=== PATIENT | male | born 1950 | race Caucasian/White ===

== ENCOUNTER 2021-06-27 06:02 | Inpatient (IN) ==
--- NOTE | 2021-06-09 11:44 | PAT Medication Instructions ---
Medication Instructions Date of Service June 09, 2021 Home Medications ascorbic acid (vitamin C) [Vitamin C] 500 mg PO QAM calcium carbonate-vitamin D3 [Calcium 600 + D(3)] 1 cap PO QAM colesevelam 625 mg PO PM fluoxetine 20 mg PO QAM glimepiride 2 mg PO QPM insulin NPH isoph U-100 human [Novolin N Flexpen] 45 - 50 unit SUBCUT BID Novolog FlexPen 8-15 unit SUBCUT with meals lactobacillus combination no.4 [Probiotic] 3,000 mmu cells PO QPM levothyroxine 88 mcg PO QAM lisinopril 10 mg PO QAM omeprazole 40 mg PO QAM pramipexole [Mirapex] 0.125 mg PO BID simvastatin 20 mg PO HS topiramate 25 mg PO HS STOP taking 48 hours before surgery colesevelam 625 mg PO PM DO NOT take the morning of surgery ascorbic acid (vitamin C) [Vitamin C] 500 mg PO QAM calcium carbonate-vitamin D3 [Calcium 600 + D(3)] 1 cap PO QAM lisinopril 10 mg PO QAM pramipexole [Mirapex] 0.125 mg PO BID Novolog FlexPen 8-15 unit SUBCUT with meals Take morning of surgery With a small sip of water, OTHERWISE NOTHING TO EAT OR DRINK AFTER MIDNIGHT: fluoxetine 20 mg PO QAM levothyroxine 88 mcg PO QAM omeprazole 40 mg PO QAM Take evening before surgery glimepiride 2 mg PO QPM insulin NPH isoph U-100 human [Novolin N Flexpen] 45 - 50 unit SUBCUT BID Novolog FlexPen 8-15 unit SUBCUT with meals lactobacillus combination no.4 [Probiotic] 3,000 mmu cells PO QPM pramipexole [Mirapex] 0.125 mg PO BID simvastatin 20 mg PO HS topiramate 25 mg PO HS Insulin Dependent Diabetic Patients * Test your blood sugar the morning of surgery * If Blood Sugar is GREATER THAN 150, take HALF of your regular dose of: insulin NPH isoph U-100 human [Novolin N Flexpen] (22 units) * If Blood Sugar is LESS THAN 150, DO NOT TAKE ANY: insulin NPH isoph U-100 human [Novolin N Flexpen] Other Notes If you have any questions please call us at [phone] or [phone] or [phone] or [phone]
--- NOTE | 2021-06-13 12:20 | Anesthesiology Consultation ---
Date of Service June 13, 2021 Assessment & Plan (1) Encounter for pre-operative examination: Chart Review Chart Review: Acceptable Risk for Surgery (pending PCP clearance and preop Covid testing results ) and Patient seen in Pre Admission Testing -Will attempt to get PCP office visit (pt scheduled to see the week of 06/12/21) - Check BSG AM DOS PAT appointment 06/13/2021, patient resides in [facility]. 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 Wears mask, uses good hand hygiene and socially distances. No known Covid positive contacts or Covid related symptoms. No known Covid infection in the past 90 days. Patient vaccinated for Covid. Preop Covid testing scheduled 06/23/21= will await results. Educated on importance of self quarantining, social distancing and wearing mask in public both for the patient after Covid testing done History Surgery Operation Date: 06/27/21 07:45 Proposed Procedures p C3-C5 Anterior Cervical Discectomy and Fusion Spinal Cord Monitoring - Don Clarke, Height/Weight Height: 5 ft 7 in Weight: 145.5 kg Allergies Allergy/AdvReac Type Severity Reaction Status Date / Time naproxen AdvReac Severe MAJOR Verified 06/08/21 15:36 FLIUD RETENTION metformin AdvReac Unknown Diarrhea Verified 06/08/21 16:18 semaglutide [From Ozempic] AdvReac Unknown Gastrointestinal Verified 06/08/21 16:18 Upset Medications Home Medications Medication Instructions Recorded Confirmed Last Taken ascorbic acid (vitamin C) [Vitamin 500 mg PO QAM 06/08/21 06/08/21 Unknown C] calcium carbonate-vitamin D3 1 cap PO QAM 06/08/21 06/08/21 Unknown [Calcium 600 + D(3)] colesevelam 625 mg PO PM 06/08/21 06/08/21 Unknown fluoxetine 20 mg PO QAM 06/08/21 06/08/21 Unknown glimepiride 2 mg PO QPM 06/08/21 06/08/21 Unknown insulin NPH isoph U-100 human 45 - 50 unit SUBCUT BID 06/08/21 06/08/21 Unknown [Novolin N Flexpen] lactobacillus combination no.4 3,000 mmu cells PO QPM 06/08/21 06/08/21 Unknown [Probiotic] levothyroxine 88 mcg PO QAM 06/08/21 06/08/21 Unknown lisinopril 10 mg PO QAM 06/08/21 06/08/21 Unknown omeprazole 40 mg PO QAM 06/08/21 06/08/21 Unknown pramipexole [Mirapex] 0.125 mg PO BID 06/08/21 06/08/21 Unknown simvastatin 20 mg PO HS 06/08/21 06/08/21 Unknown topiramate 25 mg PO HS 06/08/21 06/08/21 Unknown insulin aspart U-100 [Novolog See Rx Instructions .ROUTE .COMPLEX 06/13/21 06/13/21 Unknown Flexpen U-100 Insulin] Past Medical History Medical History [id number]- S/p radioactive iodine and injections No current issues Depression HX Diabetes mellitus, type 2 Glucose fluctuates - usually 170s on average Enlarged prostate GERD (gastroesophageal reflux disease) Stable and controlled Hypothyroidism Lyme disease DX'D 2007 No residual issues Plantar fasciitis Right foot Restless leg syndrome Sleep apnea CPAP Exercise / Class Metabolic Activity II 4-5 Yardwork/Stairs/Walk up hill (one flight of stairs - no chest pain or SOB ) Past Family History Family History Mother Family history of diabetes mellitus Grandfather (Paternal) Family history of diabetes mellitus Grandmother (Paternal) Family history of diabetes mellitus Past Surgical History Surgical History Fusion of spine X 2-INCLUDES LOWER BACK-RODS LENGTH SPINE-2012 History of arthroscopy RIGHT KNEE History of carpal tunnel release RIGHT History of cataract surgery R/L History of cholecystectomy History of colonoscopy 2020 History of esophagogastroduodenoscopy (EGD) WITH DILITATION History of hand surgery R/L TRIGGER FINGER History of total knee replacement RIGHT Pilonidal cyst REMOVAL OF Rectal fissure REPAIR OF Past Anesthesia History No Hx of Anesthesia Complications and No Family Hx of Anesthesia Complications History of PONV No Hx of PONV and No Hx of Motion Sickness STOP BANG Total 7 Social History Smoking Status: Never smoker Do You Dip or Chew Tobacco: No Hx Alcohol Use: Yes Alcohol type: wine alcohol intake frequency: a few times a month Hx Substance Use: No Review of Systems ALEJANDRE only with strenuous activity Patient denies chest pain, shortness of breath, cough, wheezing, palpitations. No hx of seizures, stroke, [place]. No hx of blood clots or blood transfusions Physical Exam Vital Signs VITALS BP 148/77 P 99 TEMP 98.7 SP02 96% RESP 16 Constitutional no acute distress ENMT Mouth: no TMJ clicking Thyromental Distance: > or= 3.5 Finger Breadths (3.5) Mallampati Class: II Neck + limited neck extension Respiratory normal respiratory effort; no respiratory distress Auscultation: lungs clear to auscultation bilaterally; no wheezes Cardiovascular Rate/Rhythm: regular rate and regular rhythm Heart Sounds: no murmur Vessels: no carotid bruit Heart sounds mildly diminished throughout Musculoskeletal Spine: no pain with cervical ROM Extremities: extremities normal to inspection Psychiatric Orientation: alert Lab Results Anesthesia Preop Results Results Anesthesia Widget: WBC 8.15 K/uL (4.8-10.8) 06/13/21 Hgb 13.7 g/dL (14.0-18.0) L 06/13/21 Hct 40.6 % (42-52) L 06/13/21 Plt 190 K/uL (130-400) 06/13/21 Na 140 mmol/L (136-145) 06/13/21 K 4.5 mmol/L (3.5-5.1) 06/13/21 Cl 109 mmol/L (98-107) H 06/13/21 CO2 27 mmol/L (21-32) 06/13/21 BUN 20 mg/dl (7-18) H 06/13/21 Creat 0.94 mg/dl (0.6-1.4) 06/13/21 Glucose Level 206 mg/dl (70-99) H 06/13/21 PT 10.3 Seconds (9.0-12.0) 06/13/21 PTT 25.6 Seconds (21.0-31.0) 06/13/21 INR 1.0 (0.9-1.1) 06/13/21 HA1c 7.9 % (4.5-5.6) H 06/13/21 Urine Color Dark Yellow 06/13/21 Urine Appearance Clear (Clear) 06/13/21 Urine pH 7.0 (4.5-7.5) 06/13/21 Urine Specific [place] 1.024 (1.000-1.030) 06/13/21 Urine Protein Negative (Negative) 06/13/21 Urine Glucose (UA) Negative (Negative) 06/13/21 Urine Ketones Negative (Negative) 06/13/21 Urine Blood Negative (Negative) 06/13/21 Urine Nitrite Negative (Negative) 06/13/21 Urine Bilirubin Negative (Negative) 06/13/21 Urine Urobilinogen Negative (Negative) 06/13/21 Urine Leukocyte Esterase Negative (Negative) 06/13/21 Blood Type O Positive 06/13/21 Antibody Screen NEGATIVE 06/13/21 Lab Comments: Surgeon's office informed of glucose and Hgb A1C results Testing Electrocardiogram Date: 06/13/21 Findings: + NSR @ (71 bpm) Left posterior fascicular block (possible limb lead reversal). Nonspecific T wave abnormality. When compared to EKG from August 10, 2014no significant changes found per cardio. Other Testing Chest CT 04/24/2021 = no acute findings. No pericardial effusion. Large airways patent centrally. Lungs unremarkable. No pleural effusions.
[~2021-06-27 06:02] MED LIST: ACETAMINOPHEN 500 MG TAB PO SCH; CeleBREX 200 MG CAP PO SCH; GABAPENTIN 300 MG CAP PO SCH; LR 15ML/HR IV SCH
[2021-06-27] MEDS ORDERED: MIDAZOLAM HCL 1 MG/ML 2ML VIAL ONE (06:38)
[2021-06-27] MEDS ORDERED: HYDROmorphone INJ 2 MG/ML SYR/VIAL ONE (06:39)
--- NOTE | 2021-06-27 07:38 | History & Physical Bridge Note ---
Date of Service June 27, 2021 History & Physical Bridge Note I have examined the patient, reviewed the History & Physical and in the interval since the performance of the History & Physical I have noted the following changes of clinical significance: no changes noted
--- NOTE | 2021-06-27 07:39 | History & Physical Report ---
Date of Service June 27, 2021 Assessment & Plan (1) Cervical stenosis of spinal canal: Plan: C3-C5 anterior cervical discectomy and fusion History of Present Illness Chief Complaint: Neck and arm pain Primary Care Provider: Elia Durand This is a 70-year-old male presents with chronic persistent neck and arm pain after failing course of nonoperative care is here for surgical intervention Allergies Allergy/AdvReac Type Severity Reaction Status Date / Time naproxen AdvReac Severe MAJOR Verified 06/27/21 07:11 FLIUD RETENTION metformin AdvReac Unknown Diarrhea Verified 06/27/21 07:11 semaglutide [From Ozempic] AdvReac Unknown Gastrointestinal Verified 06/27/21 07:11 Upset Home Medications Medication Instructions Recorded Confirmed Type ascorbic acid (vitamin C) 500 mg 500 mg PO QAM 06/08/21 06/27/21 History tablet (Vitamin C) calcium carbonate-vitamin D3 600 1 cap PO QAM 06/08/21 06/27/21 History mg calcium-200 unit capsule (Calcium 600 + D(3)) colesevelam 625 mg tablet 625 mg PO PM 06/08/21 06/27/21 History fluoxetine 20 mg tablet 20 mg PO QAM 06/08/21 06/27/21 History glimepiride 2 mg tablet 2 mg PO QPM 06/08/21 06/27/21 History insulin NPH isoph U-100 human 100 45 - 50 unit SUBCUT BID 06/08/21 06/27/21 History unit/mL (3 mL) subcutaneous pen (Novolin N Flexpen) lactobacillus combination no.4 3 3,000 mmu cells PO QPM 06/08/21 06/27/21 History billion cell capsule (Probiotic) levothyroxine 88 mcg capsule 88 mcg PO QAM 06/08/21 06/27/21 History lisinopril 10 mg tablet 10 mg PO QAM 06/08/21 06/27/21 History omeprazole 40 mg capsule,delayed 40 mg PO QAM 06/08/21 06/27/21 History release pramipexole 0.125 mg tablet 0.125 mg PO BID 06/08/21 06/27/21 History (Mirapex) simvastatin 20 mg tablet 20 mg PO HS 06/08/21 06/27/21 History topiramate 25 mg tablet 25 mg PO HS 06/08/21 06/27/21 History insulin aspart U-100 100 unit/mL See Rx Instructions .ROUTE .COMPLEX 06/13/21 0 06/27/21 History (3 mL) subcutaneous pen (Novolog Flexpen U-100 Insulin aspart) Past Med/Surg History Medical History [id number]- S/p radioactive iodine and injections No current issues Depression HX Diabetes mellitus, type 2 Glucose fluctuates - usually 170s on average Enlarged prostate GERD (gastroesophageal reflux disease) Stable and controlled Hypothyroidism Lyme disease DX'D 2007 No residual issues Plantar fasciitis Right foot Restless leg syndrome Sleep apnea CPAP Surgical History Fusion of spine X 2-INCLUDES LOWER BACK-RODS LENGTH SPINE-2012 History of arthroscopy RIGHT KNEE History of carpal tunnel release RIGHT History of cataract surgery R/L History of cholecystectomy History of colonoscopy 2020 History of esophagogastroduodenoscopy (EGD) WITH DILITATION History of hand surgery R/L TRIGGER FINGER History of total knee replacement RIGHT Pilonidal cyst REMOVAL OF Rectal fissure REPAIR OF Family History Mother Family history of diabetes mellitus Grandfather (Paternal) Family history of diabetes mellitus Grandmother (Paternal) Family history of diabetes mellitus Social History (Updated 06/08/21 @ 16:12 by Anne Marie Lowry RN) Smoking Status: Never smoker Second Hand Exposure: No; Do You Dip or Chew Tobacco: No; Hx Alcohol Use: Yes Alcohol type: wine Hx Substance Use: No Preferred Language: Upper Sorbian Communication Ability: Effective Icd 9 Coder Required: No Beliefs That Will Affect Care: None Current Living Situation: Spouse current occupational status: employed 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
[2021-06-27] MEDS ORDERED: FLOSEAL HEMOSTATIC MATRIX 10ML TOP ONE (08:51)
[2021-06-27] MEDS ORDERED: ROCURONIUM BROMIDE 10 MG/ML 5 ML VIAL IV ONE (09:22)
[2021-06-27] MEDS ORDERED: DEXAMETHASONE SOD INJ 4 MG/ML VIAL ONE (09:22)
[2021-06-27] MEDS ORDERED: SUCCINYLCHOLINE CHLORIDE 20 MG/ML 10 ML VIAL IV ONE (09:22)
[2021-06-27] MEDS ORDERED: GLYCOPYRROLATE 0.2 MG/ML VIAL ONE (09:22)
[2021-06-27] MEDS ORDERED: PROPOFOL IV EMULSION 10 MG/ML 20 ML VIAL IV ONE (09:22)
[2021-06-27] MEDS ORDERED: NEOSTIGMINE METHYLSULFATE 1 MG/ML 10ML VIAL ONE (09:22)
[2021-06-27] MEDS ORDERED: ONDANSETRON INJ 2 MG/ML 2 ML VIAL ONE (09:22)
[2021-06-27] MEDS ORDERED: LIDOCAINE 2% 2 ML VIAL/AMP(20MG/ML) INFIL ONE (09:22)
[2021-06-27] MEDS ORDERED: ePHEDrine sulfate 50 MG/ML SYR ONE (09:23)
--- NOTE | 2021-06-27 09:48 | Operative Report ---
Post Operative Report Pre & Post Diagnosis Operation Date: 06/27/21 07:45 Pre-Op Diagnosis: Cervical spinal stenosis with myeloradiculopathy Morbid obesity Post-Op Diagnosis: Same I identified the patient and participated in the time-out.: Yes Procedure Operation Date: 06/27/21 07:45 Actual Procedures #1 anterior cervical discectomy with bilateral foraminotomies C3-4 and C4-5. #2 intracervical arthrodesis C3-4 and C4-5. #3 placement 8 mm spiral cage filled with I factor at C3-4 C4-5. #4 application of choudhury plate and screws from C3- C5. Surgeon Don Clarke, DO Construction Consultant Shannon Valenzuela Estimated Blood Loss 150 Findings See Below The patient is 5 foot 7 inches tall weighing over 142 kg with a BMI in excess of 49. The patient's body habitus did create significant technical difficulty both from positioning to exposure. This at least 50% increase to the operative time. Specimens None Indications This is a 70-year-old male well-known to me the presents with above-mentioned diagnosis after failing course of nonoperative care he is here for the above- mentioned procedure. Description of Procedure Patient was met with identified informed consent obtained. Patient was then taken to the operative suite underwent a patient placed in a supine position the Demetrio table with head Isaac faculty head. All bony prominences well-padded eyes inspected to ensure no external pressure placed upon the. This point the anterior cervical spine was prepped and draped in a sterile fashion. Sharp dissection with the assistance of Bovie cautery was performed down to and exposing the anterior cervical spine from C3-C5. Self-retaining retractors alison aron. Then performed a complete discectomy of C3-4 out to the uncovertebral joints bilaterally. [place] distraction pins were utilized to assist in visualization. Removed all posterior annular fibers longitudinal ligament bilateral foraminotomies performed. Endplates were then burred to subcortical bleeding bone and a 8 mm spiral cage filled with I factor tapped in position. Then proceeded to see for C5. Again complete discectomy performed out to the uncovertebral joints bilaterally. [place] distractor pins again utilized. Removed all posterior annular fibers longitudinal ligament bilateral foraminotomies again performed. Endplates were then burred to subcortically bone and an 8 mm spiral cage filled I factor tapped position. Distracting apparatus was removed all anterior osteophytes. Burred to a smooth cortical surface and a 5 complete screws applied with the assistance of fluoroscopy. The incision was then copiously irrigated explored to ensure no damage to surrounding structures remaining bleeding. 15 round MICHELLE drain inserted. The incision was then closed with 2 Vicryl in a fashion of 4 Monocryl for final skin closure. Steri-Strip sterile dressings placed. Patient will continue PACU stable condition. Please note spinal cord monitoring was utilized at the procedure no changes noted. Lastly Shannon Valenzuela was present at the entire surgery involved in patient positioning complex portions of the surgery and final skin closure. I attest to the content of the Intraoperative Record and any orders documented therein. Any exceptions are noted below.
[2021-06-27] MEDS ORDERED: PHARMACY GLYCEMIC MGMT CONSULT PRN (10:01)
[2021-06-27] MEDS ORDERED: ONDANSETRON INJ 2 MG/ML 2 ML VIAL IV PRN ×2 (10:18→12:01)
[2021-06-27] MEDS ORDERED: FLUMAZENIL 0.1 MG/1 ML 10 ML VIAL IV PRN (10:18)
[2021-06-27] MEDS ORDERED: NALOXONE HCL 0.4 MG/1 ML VIAL/CARP IV PRN ×2 (10:18→12:01)
[2021-06-27] MEDS ORDERED: PROMETHAZINE HCL 12.5 MG in SODIUM CHLORIDE 0.9% 50 ML IV PRN ×2 (10:18→12:01)
[2021-06-27] MEDS ORDERED: LABETALOL HCL IV 5 MG/ML 20ML IV PRN (10:18)
[2021-06-27] MEDS ORDERED: ePHEDrine sulfate 50 MG/ML AMP IV PRN (10:18)
[2021-06-27] MEDS ORDERED: ATROPINE SULFATE 0.1 MG/ML 10ML SYR IV PRN (10:18)
[2021-06-27] MEDS: fentaNYL citrate 100 MCG/2 ML VIAL IV PRN ×2 (10:35→10:41)
--- NOTE | 2021-06-27 11:15 | Anesthesiology Progress Note ---
Date of Service June 27, 2021 Anesthesia Post Procedure Vital Signs Vital Signs: Temp Pulse Pulse Resp BP BP Pulse Ox 06/27/21 11:05 75 17 144/73 H 97 06/27/21 10:55 82 14 145/64 H 96 06/27/21 10:45 74 15 150/68 H 95 06/27/21 10:35 80 15 155/69 H 98 06/27/21 10:25 75 14 152/70 H 92 06/27/21 10:15 82 17 139/82 97 06/27/21 10:05 78 14 152/70 H 99 06/27/21 09:58 36.2 C L 79 11 L 149/74 H 98 06/27/21 07:08 36.6 C 74 20 143/76 H 95 Pain Intensity Neck: Pain Intensity: 2 Transfer of Care Handoff Completed per policy Notes Mental Status: alert / awake / arousable Patient Amnestic to Procedure: Yes Nausea / Vomiting: adequately controlled Pain: adequately controlled Airway Patency, RR, SpO2: stable & adequate BP & HR: stable & adequate Hydration State: stable & adequate Anesthetic Complications: no major complications apparent
--- NOTE | 2021-06-27 11:49 | Fluoroscopy Report ---
FL cervical 2-3V HISTORY: 70 years-old Male ACDF C3-5 COMPARISON: Cervical spine MRI 05/17/2021 TECHNIQUE: 2 spot fluoroscopic images of the cervical spine were obtained utilizing 5.6 seconds ostom y done FINDINGS: Anterior plate and screw fusion with discectomy changes are noted at what appears to be the C3-C5 lev els. Additional cervical spinal fusion hardware is partially imaged at the C6-C7 level with apparent discectomy changes at C5-C6. The hardware appears intact. A radiopaque surgical sponge projects over the anterior soft tissues. IMPRESSION: Fluoroscopic assistance as above. ACT 112: Negative or not required by law. The above report was generated using voice recognition software. It may contain grammatical, syntax o r spelling errors. Electronically signed by: Rip Najera M.D. 06/27/2021 11:48 AM
[2021-06-27] MEDS ORDERED: diphenhydrAMINE Capsule 25 MG CAP PO PRN (12:01)
[2021-06-27] MEDS ORDERED: hydrOXYzine HCl 25 MG TAB PO PRN (12:01)
[2021-06-27] MEDS ORDERED: ONDANSETRON 4 MG OD TAB PO PRN (12:01)
[2021-06-27] MEDS ORDERED: RACEPINEPHRINE 2.25% NEBU SOLN 0.5 ML VIAL INH PRN (12:01)
[2021-06-27] MEDS ORDERED: DO NOT ADMINISTER PNEUMOCOCCAL VACCINE PRN (12:01)
[2021-06-27] MEDS ORDERED: LORazepam 0.5 MG TAB PO PRN (12:01)
[2021-06-27] MEDS ORDERED: METOCLOPRAMIDE HCL INJ 5 MG/ML 2 ML VIAL IV PRN (12:01)
[2021-06-27] MEDS ORDERED: SOD PHOSPHATE/SOD BIPHOSPHATE ENEMA 132 ML BTL PR PRN (12:01)
[2021-06-27] MEDS ORDERED: HYDROmorphone INJ 0.5 MG/0.5 ML SYR IV PRN (12:01)
[2021-06-27] MEDS ORDERED: MAGNESIUM HYDROXIDE SUSP 30 ML UDC PO PRN (12:01)
[2021-06-27] MEDS ORDERED: ALUMINUM/MAGNESIUM SUSP 30 ML UDC PO PRN (12:01)
[2021-06-27] MEDS ORDERED: HYDROmorphone INJ 1 MG/ML SYRINGE IV PRN (12:01)
[2021-06-27] MEDS ORDERED: oxyCODONE HCL IR 5 MG TAB (IMMEDIATE RELEASE) PO PRN (12:01)
[2021-06-27] MEDS ORDERED: DO NOT ADMINISTER FLU VACCINE PRN (12:01)
[2021-06-27] MEDS ORDERED: ACETAMINOPHEN 1,000 MG/100 ML VIAL IV PRN (12:01)
[2021-06-27] MEDS ORDERED: ACETAMINOPHEN 500 MG TAB PO PRN (12:01)
[2021-06-27] MEDS ORDERED: traMADol HCL 50 MG TABLET PO PRN (12:01)
[2021-06-27] MEDS ORDERED: LORazepam 0.5 MG/1 ML VIAL IV PRN (12:01)
[2021-06-27] MEDS ORDERED: dexAMETHasone 8 MG in SYRINGE 0 ML IV PRN (12:01)
[2021-06-27] MEDS ORDERED: FAMOTIDINE 20 MG TAB PO PRN (12:01)
[2021-06-27] MEDS ORDERED: INSULIN HUMAN NPH SC ONE ×3 (13:15→20:00)
[2021-06-27] MEDS: INSULIN ASPART 100 UNITS/ML 3 ML PEN SC SCH ×4 (15:02→23:56)
[2021-06-27] MEDS: SODIUM CHLORIDE 0.9% 1000ML 1,000 ML IV SCH ×3 (15:03→20:57)
--- NOTE | 2021-06-27 15:36 | Pharmacy Report ---
Pharmacy Glycemic Short Note 2 - Date of Service June 27, 2021 - Glycemic Short BSG Results (Last 24 hours): 06/27/21 06/27/21 06/27/21 06:40 10:05 12:33 POC Glucose 144 H 149 H 182 H 06/27/21 06/27/21 14:54 14:56 POC Glucose 323 H* 285 H OUTPATIENT ANTIDIABETIC REGIMEN: * NPH insulin 45 units SQ QAM, 50 units SQ QPM * Glimepiride 2 mg qPM * Novolog 8-15 units with meals ASSESSMENT: * 70 y/o M admitted for surgery for spinal stenosis. He is Type 2 diabetic managed at home on NPH and Novolog insulins in addition to PO Glimepiride. Will hold the Glimepiride. * Pt took 12 units of NPH VISUAL LEAD today. Added 25 units of NPH this afternoon to cover for steroid induced hyperglycemia. * NPH scale ordered also for tonight based on BSG. * Novolog parameters based on estimate of patient's home insulin needs. PLAN FOR INPATIENT GLYCEMIC CONTROL: * Hold outpatient oral diabetes medications * Basal insulin * NPH 25 units SQ x1 this afternoon * NPH 15-25 units scale HS based on BSG * Bolus insulin * NovoLog per scale ACHS or Q6hrs while NPO. Added 00,04 checks. * Goal Range: Low 110 mg/dL - High 140 mg/dL * Correction Factor: 15 mg/dL/unit * Nutritional / Prandial insulin per carb ratio of 1 unit per 5 grams CHO consumed PLAN FOR DISCHARGE: * TBD
[2021-06-27] MEDS: ceFAZolin 2000MG 2,000 MG/15 ML SYR IV SCH ×2 (16:33→23:51)
[2021-06-27] MEDS: PRAMIPEXOLE DIHYDROCHLO 0.25 MG TAB PO SCH (20:31)
--- NOTE | 2021-06-27 20:43 | Hospitalist Consultation ---
Date of Consultation June 27, 2021 Assessment & Plan (1) Cervical stenosis of spinal canal: Now status post #1 anterior cervical discectomy with bilateral foraminotomies C3-4 and C4-5. #2 intracervical arthrodesis C3-4 and C4-5. #3 placement 8 mm spiral cage filled with I factor at C3-4 C4-5. #4 application of choudhury plate and screws from C3-C5. EBL 150 mL Doing well postoperatively Continue pain control, bowel regimen Postoperative management as per orthopedic spine surgeon IV fluids postoperatively Follow CBC, BMP in the morning (2) HTN (hypertension), benign: We will hold home lisinopril until renal function and blood pressure reassessed in the morning Follow BMP in the morning (3) Sleep apnea: We will ensure that he has brought home CPAP (4) Restless leg syndrome: Continue home Mirapex (5) Hypothyroidism: Continue home levothyroxine (6) GERD (gastroesophageal reflux disease): Continue home PPI (7) Enlarged prostate: No medications for this Watch for urinary retention (8) Diabetes mellitus, type 2: With hyperglycemia status post surgery and received Decadron Pharmacy glycemic control is managing Giving NPH and NovoLog Holding home glimepiride (9) Depression: No acute issues Continue home fluoxetine (10) Hyperlipidemia: Continue home simvastatin, holding home colesevelam due to unavailability (11) Obesity: BMI 49.2 Needs weight loss (12) Migraine headache: No acute issues Continue home topiramate (13) DVT prophylaxis: SCDs, no chemical prophylaxis due to spine surgery Disposition-continued stay Hospital service will follow along History of Present Illness Reason for Consultation: Postoperative medical management Requesting Physician: Dr. Clarke Attending Physician: Don Clarke, DO History of Present Illness This patient is a 70-year-old male with a history of depression/anxiety, hyperlipidemia, DM 2, hypothyroidism, HTN, GERD, RLS, MARY CARMEN, obesity, cervical spine stenosis, choroid melanoma, and migraines, who was admitted to the hospital status post #1 anterior cervical discectomy with bilateral foraminotomies C3-4 and C4-5. #2 intracervical arthrodesis C3-4 and C4-5. #3 placement 8 mm spiral cage filled with I factor at C3-4 C4-5. #4 application of choudhury plate and screws from C3-C5. Patient reports he is doing very well postoperatively. He does have some tightness at the base of his neck. The previous numbness down his entire left upper extremity is now completely resolved. He denies any trouble with urinating. He last moved his bowels yesterday. He has no nausea or vomiting, no abdominal pain. Is tolerating full liquids diet. Denies chest pain or shortness of breath. Allergies Allergy/AdvReac Type Severity Reaction Status Date / Time naproxen AdvReac Severe MAJOR Verified 06/27/21 07:11 FLIUD RETENTION metformin AdvReac Unknown Diarrhea Verified 06/27/21 07:11 semaglutide [From Ozempic] AdvReac Unknown Gastrointestinal Verified 06/27/21 07:11 Upset Home Medications Medication Instructions Recorded Confirmed Type ascorbic acid (vitamin C) 500 mg 500 mg PO QAM 06/08/21 06/27/21 History tablet (Vitamin C) calcium carbonate-vitamin D3 600 1 cap PO QAM 06/08/21 06/27/21 History mg calcium-200 unit capsule (Calcium 600 + D(3)) colesevelam 625 mg tablet 625 mg PO PM 06/08/21 06/27/21 History fluoxetine 20 mg tablet 20 mg PO QAM 06/08/21 06/27/21 History glimepiride 2 mg tablet 2 mg PO QPM 06/08/21 06/27/21 History insulin NPH isoph U-100 human 100 45 - 50 unit SUBCUT BID 06/08/21 06/27/21 History unit/mL (3 mL) subcutaneous pen (Novolin N Flexpen) lactobacillus combination no.4 3 3,000 mmu cells PO QPM 06/08/21 06/27/21 History billion cell capsule (Probiotic) levothyroxine 88 mcg capsule 88 mcg PO QAM 06/08/21 06/27/21 History lisinopril 10 mg tablet 10 mg PO QAM 06/08/21 06/27/21 History omeprazole 40 mg capsule,delayed 40 mg PO QAM 06/08/21 06/27/21 History release pramipexole 0.125 mg tablet 0.125 mg PO BID 06/08/21 06/27/21 History (Mirapex) simvastatin 20 mg tablet 20 mg PO HS 06/08/21 06/27/21 History topiramate 25 mg tablet 25 mg PO HS 06/08/21 06/27/21 History insulin aspart U-100 100 unit/mL See Rx Instructions .ROUTE .COMPLEX 06/13/21 06/27/21 History (3 mL) subcutaneous pen (Novolog Flexpen U-100 Insulin aspart) oxycodone 5 mg tablet 5 mg PO Q6H PRN #20 tab 06/27/21 Rx tramadol 50 mg tablet 50 mg PO Q6H PRN #20 tab 06/27/21 Rx Patient History Medical History (Updated 06/27/21 @ 20:54 by Linsey Fuentes MD) [id number]- S/p radioactive iodine and injections No current issues Depression HX Diabetes mellitus, type 2 Glucose fluctuates - usually 170s on average Enlarged prostate GERD (gastroesophageal reflux disease) Stable and controlled HTN (hypertension), benign Hyperlipidemia Hypothyroidism Lyme disease DX'D 2007 No residual issues Migraine headache Obesity Plantar fasciitis Right foot Restless leg syndrome Sleep apnea CPAP Surgical History Fusion of spine X 2-INCLUDES LOWER BACK-RODS LENGTH SPINE-2012 History of arthroscopy RIGHT KNEE History of carpal tunnel release RIGHT History of cataract surgery R/L History of cholecystectomy History of colonoscopy 2020 History of esophagogastroduodenoscopy (EGD) WITH DILITATION History of hand surgery R/L TRIGGER FINGER History of total knee replacement RIGHT Pilonidal cyst REMOVAL OF Rectal fissure REPAIR OF Family History Mother Family history of diabetes mellitus Grandfather (Paternal) Family history of diabetes mellitus Grandmother (Paternal) Family history of diabetes mellitus Social History (Updated 06/08/21 @ 16:12 by Anne Marie Lowry RN) Smoking Status: Never smoker Second Hand Exposure: No; Do You Dip or Chew Tobacco: No; Hx Alcohol Use: Yes Alcohol type: wine Hx Substance Use: No Preferred Language: Wolof Communication Ability: Effective Visual Display Manager Required: No Beliefs That Will Affect Care: None Current Living Situation: Spouse current occupational status: employed current occupation: [employer] Other Information That Helps Us Care for You: No Feels Safe at Home: Yes Safety Concerns: Feels Safe At This Time Assistive Devices: Glasses and Oxygen - Continuous Assistive Devices Comment: CANE PRN Review of Systems Review of Systems: All systems reviewed & are unremarkable except as noted in HPI & below Physical Exam Constitutional: WD/WN, vitals as above Eyes: + anicteric sclerae ENMT: external ear and nose normal, oropharynx normal Neck: trachea midline, no thyromegaly + abnormal visual inspection ([place] collar in place, MICHELLE drain with serosanguineous fluid) Respiratory: normal respiratory effort, lungs clear to auscultation Cardiovascular: RRR, no murmur, no edema Chest (Breasts): Chest: normal inspection of chest Gastrointestinal (Abdomen): normal bowel sounds, soft, nontender, no hepatosplenomegaly Musculoskeletal: Extremities: extremities normal to inspection; no cyanosis and no clubbing Skin: no rashes, warm and dry Neurologic: moves all extremities and awake; no focal motor deficits Psychiatric: A+Ox3, euthymic affect Lymphatic: no lymphedema Results & Data Results & Data ([facility]) Vital Signs (Past 12 Hours) Vital Signs Temp Pulse Pulse Resp BP Pulse Ox Pulse Ox 06/27/21 20:34 36.5 C 69 18 125/68 95 06/27/21 19:22 75 16 96 06/27/21 18:35 36.8 C 73 18 134/71 96 06/27/21 16:38 36.3 C L 79 18 120/77 96 06/27/21 15:22 81 18 96 06/27/21 14:35 36.3 C L 79 16 127/64 97 06/27/21 13:35 36.5 C 78 16 107/61 95 06/27/21 13:18 89 16 95 06/27/21 12:34 36.8 C 82 16 127/69 97 06/27/21 12:05 36.6 C 74 14 131/67 96 06/27/21 12:01 95 06/27/21 11:35 36.8 C 81 16 142/76 H 97 06/27/21 11:15 85 14 141/69 H 96 06/27/21 11:05 75 17 144/73 H 97 06/27/21 10:55 82 14 145/64 H 96 06/27/21 10:45 74 15 150/68 H 95 06/27/21 10:35 80 15 155/69 H 98 06/27/21 10:25 75 14 152/70 H 92 06/27/21 10:15 82 17 139/82 97 06/27/21 10:05 78 14 152/70 H 99 06/27/21 09:58 36.2 C L 79 11 L 149/74 H 98 Laboratory Results Preoperative laboratory results reviewed PG Care Time/CCT Total # of Minutes Spent Total Time Spent with Patient: Total time spent is greater than 50% in coordination of care (as documented) at patient's floor/unit and/or counseling patient: Coding Level of Care Code 05260 Inpt Consult Level 3 Diagnoses Cervical stenosis of spinal canal M48.02 Obesity E66.9 Sleep apnea G47.30 Restless leg syndrome G25.81 Hypothyroidism E03.9 GERD (gastroesophageal reflux disease) K21.9 Enlarged prostate N40.0 Diabetes mellitus, type 2 E11.9 Depression F32.9 Hyperlipidemia E78.5 DVT prophylaxis Z29.9 HTN (hypertension), benign I10 Migraine headache G43.909
[2021-06-27] MEDS ORDERED: SIMVASTATIN 20 MG TAB PO SCH (21:00)
[2021-06-27] MEDS ORDERED: TOPIRAMATE 25 MG TAB PO SCH (21:00)
[2021-06-27] MEDS ORDERED: DOCUSATE SODIUM/SENNA 50/8.6MG TAB PO SCH (21:00)
[2021-06-27] MEDS ORDERED: GLIMEPIRIDE 2 MG TAB PO SCH (21:00)
[2021-06-27] MEDS ORDERED: ADVANCED PROBIOTIC 1250 MG CAPSULE PO SCH (21:00)
[2021-06-28] MEDS: INSULIN ASPART 100 UNITS/ML 3 ML PEN SC SCH ×3 (03:56→12:36)
[2021-06-28] MEDS: POLYETHYLENE (MIRALAX) 17 GM PACK PO SCH ×2 (05:59→11:47)
[2021-06-28] MEDS ORDERED: LEVOTHYROXINE SODIUM 88 MCG TABLET PO SCH (06:30)
[2021-06-28 07:09] VITALS: PULSE 64
[2021-06-28 07:47] LABS: Basophils # (auto) 0.01 K/uL (0-0.2); Basophils % (auto) 0.1 %; Eosinophils # (auto) 0.02 K/uL (0-0.5); Eosinophils % (auto) 0.2 %; Hematocrit (blood only) 39.8 % (42-52); Hemoglobin 13.6 g/dL (14.0-18.0); Immature Granulocytes # (auto) 0.01 K/uL (0.00-0.02); Immature Granulocytes % (auto) 0.1 %; Lymphocytes # (auto) 2.46 K/uL (1.2-3.4); Lymphocytes % (auto) 25.9 %; Mean Corpuscular Hgb Conc 34.2 g/dL (32-36); Mean Corpuscular Volume 96.6 fL (80-100); Mean Platelet Volume 9.8 fL (7.4-10.4); Monocytes # (auto) 0.88 K/uL (0.11-0.59); Monocytes % (auto) 9.3 %; Neutrophils % (auto) 64.4 %; Platelet Count 183 K/uL (130-400); RDW Coefficient of Variation 13.7 % (11.5-14.5); RDW Standard Deviation 48.2 fL (36.4-46.3); Red Blood Count 4.12 M/uL (4.7-6.1); White Blood Count 9.48 K/uL (4.8-10.8)
[2021-06-28] MEDS ORDERED: INSULIN HUMAN NPH SC SCH ×2 (08:00→17:00)
[2021-06-28 08:08] LABS: BUN Creatinine Ratio 22.4 (10-20); Calcium 8.5 mg/dl (8.5-10.1); Creatinine Clr Calc Pharmacy 105.9 ml/min; Est GFR (African American) 100.6 ml/min; Est GFR (Non-African American) 86.8 ml/min; Potassium 4.5 mmol/L (3.5-5.1)
[2021-06-28] MEDS ORDERED: CALCIUM 600MG + VIT D 400 IU TAB PO SCH (09:00)
[2021-06-28] MEDS ORDERED: lisinopril 10 MG TAB PO SCH (09:00)
[2021-06-28] MEDS ORDERED: PANTOprazole 40 MG TAB PO SCH (09:00)
[2021-06-28] MEDS ORDERED: FLUoxetine HCL 20 MG CAP PO SCH (09:00)
[2021-06-28] MEDS ORDERED: ASCORBIC ACID 500 MG TAB PO SCH (09:00)
[2021-06-28] MEDS: PRAMIPEXOLE DIHYDROCHLO 0.25 MG TAB PO SCH (09:18)
--- NOTE | 2021-06-28 10:18 | Discharge Summary ---
Date of Service June 28, 2021 Admission HPI Per Admitting Provider This is a 70-year-old male presents with chronic persistent neck and arm pain after failing course of nonoperative care is here for surgical intervention Principal Diagnosis Cervical spinal stenosis with radiculopathy Discharge Data Allergies Allergy/AdvReac Type Severity Reaction Status Date / Time naproxen AdvReac Severe MAJOR Verified 06/27/21 07:11 FLIUD RETENTION metformin AdvReac Unknown Diarrhea Verified 06/27/21 07:11 semaglutide [From Ozempic] AdvReac Unknown Gastrointestinal Verified 06/27/21 07:11 Upset Consultations 06/27/21 12:01 Consult Hospitalist Routine Procedures Performed Operation Date: 06/27/21 07:45 Actual Procedures p C3-C5 Anterior Cervical Discectomy and Fusion Spinal Cord Monitoring(Not Applicable) - Don Clarke DO Ordered Studies 06/27/21 07:45 FL cervical 2-3V Routine Hospital Course (1) Cervical stenosis of spinal canal: Patient 1 intracervical discectomy fusion tolerated was taken with performance of labor postop day 1 he was swallowing well. No hoarseness. MICHELLE drain decreasing probably. Excellent strength testing upper extremities. Safely discharged home. Discharge orders instructions from the chart for furthe r view. Total Time Total Time Spent Total Time Spent (In Minutes): 20 minutes Discharge Plan Discharge Items Patient Disposition: Home - Self-Care Reason For Visit: Spinal Stenosis Cervical Region Discharge Diagnosis: Cervical spinal stenosis with radiculopathy Activity: As commented below Non-emergency contact: Primary Care Provider Call non-emergency contact if: you have any medication questions Follow-up/Referrals: Elia Durand [Primary Care Provider] - Diet: Regular Addtl Attending Provider Instructions: ACTIVITY RECOMMENDATIONS: SELF CARE INSTRUCTIONS AFTER CERVICAL FUSIONS 1. No smoking. Smoking drastically decreases the chance of a solid fusion. 2. No bending, lifting more than 5 pounds, or twisting (roll like a log when turning in bed). 3. You may shower 3 days after surgery. Thoroughly dry wound. Do not soak in the tub. 4. Cervical collar: Must be worn at all times including sleeping. You may remove the brace only to bath, eat and if you are sitting in a recliner. 5. Please walk as much as you can for exercise. Gradually increase the distance that you walk as your endurance increases. SPECIAL CARE INSTRUCTIONS: VERY IMPORTANT TO READ AND REVIEW A. Do not take any anti-inflammatory medications (i.e. Indocin, Advil, Aspirin, Naprosyn, Aleve, Motrin, etc.) as these may inhibit the chance of a solid fusion. Tylenol is okay to take. B. Your surgical incision has been closed with a cosmetic suture under the skin that will dissolve in about 6 weeks. In 14 days, you can use a pair of clean scissors and cut the suture that is left outside of the skin at the ends of your incision. C. Complications are uncommon, but please contact us if you have any signs or symptoms of: 1. wound infection (fever higher than 102.5 degrees F, redness, separation of wound, drainage, or increasing pain from the incision) 2. blood clots in legs (pain, swelling, redness and warmth in legs) 3. urinary tract infection (fever higher than 102.5 degrees, burning upon urination or increased frequency of urination) 4. nerve problems (inability to walk on your toes or heels, numbness, loss of bowel or bladder control) 5. any other symptoms that concern you. D. Please call the office at if you have any concerns or questions about your operation or recovery. MANAGING PAIN AFTER SPINAL SURGERY 1. Narcotic medication is intended for short-term use and will be provided for surgical pain. Surgical pain usually lasts for a period of 4-6 weeks. Narcotic medication includes Percocet, Vicodin, Darvocet, Tylenol #3 or Lortab. 2. Longer-term pain is more appropriately treated with non-narcotic medication such as Tylenol ES. 3. Muscle spasm is not appropriately treated with narcotics. Muscle relaxers such as Soma, Flexeril or Skelaxin can be used along with Tylenol ES. 4. Remember that we all live with some "aches and pains". This is not unusual or uncommon after an injury or as we get older. 5. We will provide appropriate medication within the normal guidelines of their prescribed use. We will also be very cautious and aware of potential abuse and extended duration of patients' medication needs. 6. Please allow 2-3 days to process refills. Prescriptions will not be mailed but must be picked up at the office. FOLLOW UP VISIT: Keep your scheduled follow-up appointment. Any questions, please call the office at . Pending Studies at Discharge: No Stand-Alone Forms: My [facility], Smoking Cessation Medications and DC Order Prescriptions: New oxycodone 5 mg tablet 5 mg PO Q6H PRN (Reason: pain, severe) Qty: 20 RF: 0 tramadol 50 mg tablet 50 mg PO Q6H PRN (Reason: pain, moderate) Qty: 20 RF: 0 Continued topiramate 25 mg Tablet 25 mg PO HS RF: 0 omeprazole 40 mg Capsule,Delayed Release(Dr/Ec) 40 mg PO QAM RF: 0 glimepiride 2 mg Tablet 2 mg PO QPM RF: 0 ascorbic acid (vitamin C) [Vitamin C] 500 mg Tablet 500 mg PO QAM RF: 0 colesevelam 625 mg Tablet 625 mg PO PM RF: 0 simvastatin 20 mg Tablet 20 mg PO HS RF: 0 fluoxetine 20 mg Tablet 20 mg PO QAM RF: 0 lisinopril 10 mg Tablet 10 mg PO QAM RF: 0 pramipexole [Mirapex] 0.125 mg Tablet 0.125 mg PO BID RF: 0 Calcium 600 + D(3) 600 mg calcium- 200 unit Capsule 1 cap PO QAM RF: 0 levothyroxine 88 mcg Capsule 88 mcg PO QAM RF: 0 Probiotic 3 billion cell Capsule 3,000 mmu cells PO QPM RF: 0 Novolin N Flexpen 100 unit/mL (3 mL) Insulin Pen 45 - 50 unit SUBCUT BID RF: 0 insulin aspart U-100 [Novolog Flexpen U-100 Insulin] 100 unit/mL (3 mL) Insulin Pen See Rx Instructions .ROUTE .COMPLEX RF: 0 Discharge Orders: Discharge Order (Routine); Ordered 06/28/21 Ordered By: Don Clarke Admission Data Admit Date/Time: 06/27/21 09:51 Attending Provider: Don Clarke Admit Provider: Don Clarke Primary Care Provider: Elia Durand Other Providers: Linsey Fuentes
[2021-06-28 11:47] VITALS: BP 128/65; TEMP 98.1; O2SAT 98
--- NOTE | 2021-06-28 13:21 | Hospitalist Progress Note ---
Date of Service June 28, 2021 Assessment & Plan (1) Cervical stenosis of spinal canal: Plan: Now POD#1 status post #1 anterior cervical discectomy with bilateral forami notomies C3-4 and C4-5. #2 intracervical arthrodesis C3-4 and C4-5. #3 placement 8 mm spiral cage filled with I factor at C3-4 C4-5. #4 application of choudhury plate and screws from C3-C5. EBL 150 mL Doing well postoperatively, hgb stable from previous Continue pain control, bowel regimen Postoperative management as per orthopedic spine surgeon discharging to home today as per Ortho (2) HTN (hypertension), benign: Plan: held home lisinopril post op but renal function normal and blood pressure stable -ok to restart lisinopril tomorrow at home-discussed with pt (3) Sleep apnea: Plan: continue CPAP hs (4) Restless leg syndrome: Plan: Continue home Mirapex (5) Hypothyroidism: Plan: Continue home levothyroxine (6) GERD (gastroesophageal reflux disease): Plan: Continue home PPI (7) Enlarged prostate: Plan: No medications for this Watch for urinary retention-none so far (8) Diabetes mellitus, type 2: Plan: With hyperglycemia status post surgery and received Decadron, improving today HgbA1C preop is 7.9% Pharmacy glycemic control is managing Giving NPH and NovoLog Holding home glimepiride but can restart on discharge (9) Depression: Plan: No acute issues Continue home fluoxetine (10) Hyperlipidemia: Plan: Continue home simvastatin, holding home colesevelam due to unavailability but can restart on dc (11) Obesity: Plan: BMI 49.2 Needs weight loss (12) Migraine headache: Plan: No acute issues Continue home topiramate (13) DVT prophylaxis: Plan: SCDs, no chemical prophylaxis due to spine surgery Disposition-dc to home, is medically stable Hospitalist service is signing off recommend f/u with PCP within 2 weeks Admission and Anticipated Discharge Date Admission Date: June 27, 2021 Subjective Pt feeling very well. Some pain in back of neck. Is chintan po, no N/V, no abd pain. He moved his bowels and is voiding without difficulty. No CP or SOB. Is being discharged today Review of Systems Review of Systems: All systems reviewed & are unremarkable except as noted in HPI & below Physical Exam Constitutional: WD/WN, vitals as above Eyes: + anicteric sclerae ENMT: external ear and nose normal, oropharynx normal Neck: trachea midline, no thyromegaly + abnormal visual inspection ([place] collar in place, MICHELLE drain with serosanguineous fluid) Respiratory: normal respiratory effort, lungs clear to auscultation Cardiovascular: RRR, no murmur, no edema Chest (Breasts): Chest: normal inspection of chest Gastrointestinal (Abdomen): normal bowel sounds, soft, nontender, no hepatosplenomegaly Musculoskeletal: Extremities: extremities normal to inspection; no cyanosis and no clubbing Skin: no rashes, warm and dry Neurologic: moves all extremities and awake; no focal motor deficits Psychiatric: A+Ox3, euthymic affect Lymphatic: no lymphedema Results & Data Results & Data ([facility]) Vital Signs (Past 12 Hours) Vital Signs Temp Pulse Resp BP BP Pulse Ox 06/28/21 11:42 36.7 C 64 18 128/65 98 06/28/21 09:19 36.6 C 64 16 130/75 100 06/28/21 07:16 36.5 C 64 17 134/72 99 06/28/21 07:06 64 16 95 06/28/21 06:02 66 16 136/76 99 06/28/21 03:50 18 131/79 98 06/28/21 02:58 52 L 14 92 06/28/21 01:47 62 18 120/70 94 Laboratory Results 06/28/21 07:34 06/28/21 07:34 PG Care Time/CCT Total # of Minutes Spent Total Time Spent with Patient: Total time spent is greater than 50% in coordination of care (as documented) at patient's floor/unit and/or counseling patient: Coding Level of Care Code 47821 Subseq Hosp Care Lvl 2 Diagnoses Cervical stenosis of spinal canal M48.02 HTN (hypertension), benign I10 Sleep apnea G47.30 Restless leg syndrome G25.81 Hypothyroidism E03.9 GERD (gastroesophageal reflux disease) K21.9 Enlarged prostate N40.0 Diabetes mellitus, type 2 E11.9 Depression F32.9 Hyperlipidemia E78.5 Obesity E66.9 Migraine headache G43.909 DVT prophylaxis Z29.9
[2021-06-29] MEDS ORDERED: bisacodyL 10 MG SUPP PR PRN (08:00)
== END 2021-06-28 15:23 | disposition home or self-care (01) | DRG 472 ==
LOC: ASU 06:02 → 3E 09:51